=== PATIENT | male | born 1970 | race African-American/Black ===

== ENCOUNTER 2017-01-21 08:53 | Outpatient (CLI) | payer BC ==
[2017-01-22] MEDS ORDERED: CLOP75TA2 PO (23:00)
[2017-01-22] MEDS ORDERED: CRESTOR20 MG PO (23:01)
[2017-01-22] MEDS ORDERED: LISI10TA11 PO (23:01)
[2017-01-22] MEDS ORDERED: JANUVIA100 MG PO (23:02)
[2017-01-22] MEDS ORDERED: BENTYL10 MG PO (23:02)
[2017-01-22] MEDS ORDERED: BETAPACE80 MG PO (23:03)
[2017-01-22] MEDS ORDERED: ASPIRIN81 M1 PO (23:03)
[2017-01-22] MEDS ORDERED: NITR0.4S2 SL (23:05)
[2017-01-22] MEDS ORDERED: OMEP20CA PO (23:06)
[2017-01-22] MEDS ORDERED: CETIRIZINE10 MG PO (23:07)
== END 2017-01-21 09:30 | disposition short-term general hospital (02) ==
LOC: AMB 08:53
DX: R07.89 Other chest pain (principal); R74.8 Abnormal levels of other serum enzymes
CPT/HCPCS: A0425; A0427

== ENCOUNTER 2017-01-22 21:43 | Observation (INO) | payer BC ==
[~2017-01-22] VITALS: Ht 162.6 cm; Wt 115.8 kg
[2017-01-22 21:43] VITALS: BP 150/97; TEMP 97.8
[2017-01-22 22:08] LABS: PLATELET COUNT 302 K/uL (142-355)
[2017-01-22 22:19] LABS: POTASSIUM 4.1 mmol/L (3.6-5.2); SODIUM 133 mmol/L (136-145)
[2017-01-22 22:29] LABS: PARTIAL THROMBOPLASTIN TIME 23.9 SECONDS (24.5-33.6)
[2017-01-22] MEDS ORDERED: CLOP75TA2 PO (23:00)
[2017-01-22] MEDS ORDERED: LISI10TA11 PO (23:01)
[2017-01-22] MEDS ORDERED: CRESTOR20 MG PO (23:01)
[2017-01-22] MEDS ORDERED: JANUVIA100 MG PO (23:02)
[2017-01-22] MEDS ORDERED: BENTYL10 MG PO (23:02)
[2017-01-22] MEDS ORDERED: ASPIRIN81 M1 PO (23:03)
[2017-01-22] MEDS ORDERED: BETAPACE80 MG PO (23:03)
[2017-01-22] MEDS ORDERED: NITR0.4S2 SL (23:05)
[2017-01-22] MEDS ORDERED: OMEP20CA PO (23:06)
[2017-01-22] MEDS ORDERED: CETIRIZINE10 MG PO (23:07)
[2017-01-23] VITALS: BP 106/63; TEMP 97.6
[2017-01-23 00:27] VITALS: BP 146/93; TEMP 97.7; Ht 162.6 cm; Wt 115.8 kg
[2017-01-23 04:00] VITALS: BP 105/57; TEMP 98.7
[2017-01-23 06:08] LABS: POTASSIUM 4.1 mmol/L (3.6-5.2); SODIUM 135 mmol/L (136-145)
[2017-01-23 06:12] LABS: PLATELET COUNT 273 K/uL (142-355)
[2017-01-23 08:00] VITALS: BP 132/97; TEMP 98.3
== END 2017-01-23 08:45 | disposition short-term general hospital (02) ==
LOC: ED 21:43 → MED/SURG 22:45
PROVIDERS: Student in an Organized Health Care Education/Training Program
DX: R07.89 Other chest pain (principal); R74.8 Abnormal levels of other serum enzymes
CPT/HCPCS: 36415; 80053; 82550; 83735; 84484; 85027; 85610; 85730; 86318; 93005; 94760; 96372; 96374; 99220; 99283; G0378; J1650; J2270

== ENCOUNTER 2019-06-23 18:52 | Outpatient (CLI) | payer BC ==
[~2019-06-23 18:52] MED LIST: ASPIRIN81 M1 PO; BENTYL10 MG PO; BETAPACE80 MG PO; CETIRIZINE10 MG PO; CLOP75TA2 PO; CRESTOR20 MG PO; JANUVIA100 MG PO; LISI10TA11 PO; NITR0.4S2 SL; OMEP20CA PO
[2019-06-23 19:11] LABS: PLATELET COUNT 321 K/uL (142-355)
[2019-06-23 19:24] LABS: POTASSIUM 3.9 mmol/L (3.6-5.2)
== END 2019-06-23 22:48 | disposition home or self-care (01) ==
LOC: LABW 18:52
PROVIDERS: Specialist
DX: Z01.810 Encounter for preprocedural cardiovascular examination (principal); R07.2 Precordial pain; R93.1 Abnormal findings on diagnostic imaging of heart and coronary circulation
CPT/HCPCS: 36415; 80053; 85027

== ENCOUNTER 2019-09-09 12:52 | Outpatient (CLI) | payer BC | END 2019-09-09 19:28 | disposition home or self-care (01) | LOC: RAD 12:52 | DX: M25.512 Pain in left shoulder (principal) ==

== ENCOUNTER 2019-09-29 15:00 | Emergency (ER) | payer BC ==
[~2019-09-29] VITALS: Ht 172.7 cm; Wt 105.2 kg
[2019-09-29 15:08] VITALS: TEMP 98.5
[2019-09-29 16:03] LABS: PLATELET COUNT 332 K/uL (142-355); POTASSIUM 3.8 mmol/L (3.6-5.2); SODIUM 134 mmol/L (136-145)
[2019-09-29 17:16] VITALS: BP 121/97
== END 2019-09-29 17:21 | disposition home or self-care (01) ==
LOC: ED 15:00
PROVIDERS: Emergency Medicine
DX: E11.65 Type 2 diabetes mellitus with hyperglycemia (principal)
CPT/HCPCS: 36415; 80053; 81000; 82550; 82962; 84484; 85027; 93005; 96360; 99284